=== PATIENT | female | born 1970 | race African-American/Black ===

== ENCOUNTER 2020-06-13 10:48 | Day surgery (SDC) | payer OTHER ==
[2020-06-13 11:32] VITALS: BMI 18.9
[2020-06-13] MEDS ORDERED: MIDAZOLAM HCL 2 MG/2 ML SINGLE DOSE VIAL ONE ×3 (12:09)
[2020-06-13 15:16] VITALS: TEMP 98
[2020-06-13 15:36] VITALS: PULSE 75
[2020-06-13 15:55] VITALS: BP 110/68
== END 2020-06-13 14:00 | disposition home or self-care (01) ==
LOC: FASU 10:48
PROVIDERS: ATTEND Internal Medicine Gastroenterology
PROC: 0DBN8ZX Excision of Sigmoid Colon, Via Natural or Artificial Opening Endoscopic, Diagnostic (ICD-10-PCS; principal; 2020-06-13 12:13)
DX: Z12.11 Encounter for screening for malignant neoplasm of colon (principal); D12.5 Benign neoplasm of sigmoid colon; K64.0 First degree hemorrhoids
CPT/HCPCS: 88305-TC